=== PATIENT | female | born 1990 | race Caucasian/White ===

== ENCOUNTER → 2018-10-01 | Outpatient (CLI) | payer OTHER, MEDICAID ==
[~2018-10-01] MED LIST: PRENTAB74 PO
--- NOTE | 2018-10-01 11:06 | REP ---
Left rib series: Five views including PA chest. History: Left-sided chest wall pain. No comparison views. Findings: PA chest x-ray shows no evidence of pneumothorax, hydrothorax, mediastinal widening, or infiltrate. Multiple views of the left rib cage demonstrate fractures involving the left posterolateral sixth and seventh ribs. The seventh rib fracture shows displacement and slight override. No other fractures seen. Impression: Left posterolateral sixth and seventh rib fractures. The seventh rib fracture is somewhat displaced. No complication is seen. Electronically Signed by Nick Serra MD 10/01/2018 10:58 A
== END ==
LOC: M LRY 10:34
PROVIDERS: ATTEND Nurse Practitioner Family
DX: R07.89 Other chest pain (principal); S22.42XS Multiple fractures of ribs, left side, sequela

== ENCOUNTER → 2018-11-29 | Outpatient (CLI) | payer OTHER, MEDICAID ==
--- NOTE | 2018-11-29 12:08 | REP ---
Bilateral ribs six views: There are fractures of the left sixth and seventh ribs posterolaterally. No right rib fractures are identified. PA chest: There is no pneumothorax, hemothorax or pulmonary contusion. Lung mckeon are clear. Cardiac size is normal. The ramon, mediastinum, skeletal structures are unremarkable. Impression: Negative PA chest. Electronically Signed by Francois Vazquez MD 11/29/2018 12:00 P
--- NOTE | 2018-11-29 12:10 | REP ---
Lumbar spine five views: Vertebral body heights, interspacing alignment are normal. There is no spondylolysis. There is no spondylolisthesis. The pedicles, facets and sacroiliac articulations are unremarkable. 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 Electronically Signed by Francois Vazquez MD 11/29/2018 12:02 P
--- NOTE | 2018-11-29 12:11 | REP ---
Cervical spine seven views: Vertebral body heights, interspacing alignment are normal. The prevertebral soft tissues are normal. The facets are normally aligned. There is no listhesis on flexion or extension. The odontoid view is unremarkable. There is no bony foraminal encroachment. Impression: Negative cervical spine plain film study. Electronically Signed by Francois Vazquez MD 11/29/2018 12:03 P
== END ==
LOC: M LRY 10:10
PROVIDERS: ATTEND Nurse Practitioner Family
DX: R07.9 Chest pain, unspecified (principal); M54.2 Cervicalgia

== ENCOUNTER → 2020-10-03 | Outpatient (CLI) | payer SELFPAY | LOC: M LABSMTC 10:56 | PROVIDERS: ATTEND Pediatrics | DX: Z20.822 Contact with and (suspected) exposure to COVID-19 (principal) ==

== ENCOUNTER → 2024-04-09 | Outpatient (REF) | payer BC, MEDICAID, OTHER | LOC: M LAB REF 16:06 | PROVIDERS: ATTEND Physician Assistant | DX: S39.012A Strain of muscle, fascia and tendon of lower back, initial encounter (principal) ==

== ENCOUNTER → 2024-10-21 | Outpatient (CLI) | payer BC | LOC: M PLAIMG 10:02 | PROVIDERS: ATTEND Otolaryngology | DX: J32.8 Other chronic sinusitis (principal) ==